=== PATIENT | male | born 1965 | race Two or more races ===

== ENCOUNTER 2017-03-14 18:47 | Emergency (ER) | payer BC, OTHER ==
[2017-03-14 18:53] VITALS: BP 135/91
[2017-03-14] MEDS ORDERED: TETRACAINE HCL 0.5% OPH SOLN 2 ML OU ONE (19:44)
[2017-03-14] MEDS ORDERED: TETRACAINE HCL 0.5% OPH SOLN 2 ML ONE (19:48)
--- NOTE | 2017-03-14 20:21 | ER Document Report ---
ED General - General Chief Complaint: Eye Injury Stated Complaint: POSSIBLE GLASS IN EYES Time Seen by Provider: 03/14/17 19:35 Mode of Arrival: Ambulatory Information source: Patient Notes: 52-year-old male presents with concerns of broken shards of glass in his eye. Patient notes he was at [employer] small pieces against his eyes. He feels there is sand-like substance in his eyes. Admits to blurry vision tetanus was updated on his prior visit last year TRAVEL OUTSIDE OF THE [place] IN LAST 30 DAYS: No - HPI Onset: Just prior to arrival Onset/Duration: Sudden Quality of pain: Sharp Severity: Mild Pain Level: 1 Associated symptoms: Other Exacerbated by: Denies Relieved by: Denies Similar symptoms previously: No Recently seen / treated by doctor: No - Related Data Allergies/Adverse Reactions: cortisone [Cortisone] Allergy (Verified 03/14/17 18:52) bloating Past Medical History - Social History Smoking Status: Never Smoker Cigarette use (# per day): No Chew tobacco use (# tins/day): No Smoking Education Provided: No Family History: Reviewed & Not Pertinent Renal/ Medical History: Denies: Hx Peritoneal Dialysis Musculoskeltal Medical History: Reports Hx Musculoskeletal Trauma Past Surgical History: Reports: Hx Orthopedic Surgery - back surgery - Immunizations Hx Diphtheria, Pertussis, Tetanus Vaccination: Yes - tetanus vaccine in 2010 Review of Systems - Review of Systems Notes: REVIEW OF SYSTEMS: CONSTITUTIONAL : Denies fever, chills, or sweats. Denies recent illness. EENT: Admits to foreign body sensation eyes CARDIOVASCULAR: Denies chest pain. Denies palpitations or racing or irregular heart beat. Denies ankle edema. RESPIRATORY: Denies cough, cold, or chest congestion. Denies shortness of breath, difficulty breathing, or wheezing. GASTROINTESTINAL: Denies abdominal pain or distention. Denies nausea, vomiting , or diarrhea. Denies blood in vomitus, stools, or per rectum. Denies black, tarry stools. Denies constipation. GENITOURINARY: Denies difficulty urinating, painful urination, burning, frequency, blood in urine, or discharge. MUSCULOSKELETAL: Denies back or neck pain or stiffness. Denies joint pain or swelling. SKIN: Denies rash, lesions or sores. HEMATOLOGIC : Denies easy bruising or bleeding. LYMPHATIC: Denies swollen, enlarged glands. NEUROLOGICAL: Denies confusion or altered mental status. Denies passing out or loss of consciousness. Denies dizziness or lightheadedness. Denies headache. Denies weakness or paralysis or loss of use of either side. Denies problems with gait or speech. Denies sensory loss, numbness, or tingling. Denies seizures. PSYCHIATRIC: Denies anxiety or stress. Denies depression, suicidal ideation, or homicidal ideation. ALL OTHER SYSTEMS REVIEWED AND NEGATIVE. Dictation was performed using [employer] voice recognition software PHYSICAL EXAMINATION: GENERAL: Well-appearing, well-nourished and in no acute distress. HEAD: Atraumatic, normocephalic. EYES: Pupils equal round and reactive to light, extraocular movements intact, sclera anicteric, conjunctiva are bilaterally injected, after numbing with tetracaine eyes were with floor seen strip, no abrasions or ulcerations negative Debby sign noted. Eyelids were flipped and no foreign bodies were noted, I was flushed for 15 minutes and a few small shards of glass were removed ENT: Nares patent, oropharynx clear without exudates. Moist mucous membranes. NECK: Normal range of motion, supple without lymphadenopathy LUNGS: Breath sounds clear to auscultation bilaterally and equal. No wheezes rales or rhonchi. HEART: Regular rate and rhythm without murmurs ABDOMEN: Soft, nontender, nondistended abdomen. No guarding, no rebound. No masses appreciated. Musculoskeletal: Normal range of motion, no pitting or edema. No cyanosis. NEUROLOGICAL: Cranial nerves grossly intact. Normal speech, normal gait. Normal sensory, motor exams PSYCH: Normal mood, normal affect. SKIN: Warm, Dry, normal turgor, no rashes or lesions noted. Physical Exam - Vital signs Vitals: Temp Pulse Resp BP Pulse Ox 97.8 F 79 14 135/91 H 97 03/14/17 18:52 03/14/17 18:52 03/14/17 18:52 03/14/17 18:52 03/14/17 18:52 Course - Re-evaluation Re-evalutation: 03/14/17 21:22 Area was washed extensively, patient notes significant improvement of symptoms. No abrasions or lacerations are noted. Expect patient to find small shards of glass however I did explore extensively and none where noted to be left behind. Patient will be given follow-up with ophthalmology for further evaluation and care After performing a Medical Screening Examination, I estimate there is LOW risk for a RETAINED CORNEAL or LID FOREIGN BODY, DEEP SPACE INFECTION (e.g., ORBITAL CELLULITIS OR ABSCESS), ACUTE GLAUCOMA, PENETRATING GLOBE INJURY, RETINAL DETACHMENT, or MENINGITIS thus I consider the discharge disposition reasonable. I have reevaluated this patient multiple times and no significant life threatening changes are noted. Also, there is no evidence or peritonitis, sepsis , or toxicity. The patient and I have discussed the diagnosis and risks, and we agree with discharging home with outpatient follow-up with the understanding that symptoms and presentations can change. We also discussed returning to the Emergency Department immediately if new or worsening symptoms occur. We have discussed the symptoms which are most concerning (e.g., changing or worsening pain, vision changes, neck stiffness or fever) that necessitate immediate return. - Vital Signs Vital signs: Temp Pulse Resp BP Pulse Ox 98.7 F 68 18 135/91 H 95 03/14/17 20:38 03/14/17 20:38 03/14/17 20:38 03/14/17 18:52 03/14/17 20:38 Discharge - Discharge Clinical Impression: Foreign body, eye Qualifiers: Encounter type: initial encounter Laterality: unspecified laterality Qualified Code(s): T15.90XA - Foreign body on external eye, part unspecified, unspecified eye, initial encounter Condition: Stable Disposition: HOME, SELF-CARE Instructions: Eye Injury ([facility]) Referrals: DAYAMI OBRIEN DO [ACTIVE STAFF] - Follow up tomorrow
== END 2017-03-14 20:44 | disposition home or self-care (01) ==
LOC: ER 18:47
DX: T15.90XA Foreign body on external eye, part unspecified, unspecified eye, initial encounter (principal); S05.90XA Unspecified injury of unspecified eye and orbit, initial encounter; H53.8 Other visual disturbances; W22.8XXA Striking against or struck by other objects, initial encounter
CPT/HCPCS: 99283